=== PATIENT | male | born 1950 | race Caucasian/White ===

== ENCOUNTER 2019-10-09 10:42 | Outpatient (CLI) | payer MEDICARE, SELFPAY ==
[2019-10-09 11:00] LABS: Basophils Absolute Auto 0.1 K/mm3 (0.0-0.1); Basophils Percent Auto 1.1 % (0.2-1.2); Eosinophils Absolute Auto 0.3 K/mm3 (0-0.3); Eosinophils Percent Auto 4.5 % (0-4.4); Hematocrit 46.5 % (42.0-52.0); Hemoglobin 16.1 g/dL (14.0-18.0); Immature Granulocyte Absolute 0.12 K/mm3 (0.00-0.031); Immature Granulocyte Percent A 1.9 % (0-0.5); Lymphocytes Absolute Auto 2.13 K/mm3 (0.9-3.2); Lymphocytes Percent Auto 34.5 % (18.3-44.2); Mean Corpuscular HGB Conc 34.6 g/dl (32-36); Mean Corpuscular Hemoglobin 33.3 pg (26-34); Mean Corpuscular Volume 96.1 fl (80-100); Mean Platelet Volume 8.9 fl (7.4-10.4); Monocytes Absolute Auto 0.9 K/mm3 (0.1-0.6); Monocytes Percent Auto 13.8 % (2.6-8.5); Neutrophils Absolute Auto 2.7 K/mm3 (1.3-6.7); Neutrophils Percent Auto 44.2 % (45.5-73.1); Platelet Count Result 245 k/mm3 (150-375); Red Blood Count 4.84 M/mm3 (4.6-6.20); Red Cell Distribution Width 13.2 % (11.5-14.5); White Blood Count 6.2 K/mm3 (4.5-10.0)
[2019-10-09 11:12] LABS: Hemoglobin A1C 6.4 % (<5.7)
[2019-10-09 11:14] LABS: Alanine Aminotransferase 25 U/L (4-50); Albumin Level 4.6 g/dL (3.5-5.1); Alkaline Phosphatase 99 U/L (38-126); Aspartate Amino Transferase 39 U/L (17-59); Bilirubin,Total 0.8 mg/dL (0.2-1.3); Blood Urea Nitrogen 13 mg/dL (9-20); Calcium 9.6 mg/dL (8.4-10.2); Carbon Dioxide 27 mmol/L (22-30); Chloride 101 mmol/L (98-107); Estimated Glomerular Filt Rate > 60; Glucose 159 mg/dL (75-110); Potassium 5.1 mmol/L (3.4-5.0); Sodium 137 mmol/L (137-145)
[2019-10-09 11:41] LABS: Creatinine Urine 72.7 mg/dL
[2019-10-09 11:44] LABS: Prostate Specific Antigen 0.5 ng/mL (< OR = 4.0)
[2019-10-09 11:49] LABS: MALB Creatinine Ratio < 8.3 mg/g (0-30); Microalbumin Urine Random < 6.0 mg/L (0-16.7)
== END 2019-10-09 10:43 | disposition home or self-care (01) ==
PROVIDERS: PCP Internal Medicine; Visit Provider Internal Medicine
DX: E11.9 Type 2 diabetes mellitus without complications (principal); E03.9 Hypothyroidism, unspecified; Z12.5 Encounter for screening for malignant neoplasm of prostate
CPT/HCPCS: 36415; 80053; 82043; 83036; 84153; 84443; 85025; G0103

== ENCOUNTER 2020-05-05 09:37 | Outpatient (CLI) | payer MEDICARE, SELFPAY ==
[2020-05-05 10:19] LABS: Alanine Aminotransferase 28 U/L (4-50); Albumin Level 4.5 g/dL (3.5-5.1); Alkaline Phosphatase 65 U/L (38-126); Anion Gap 5 mmol/L (8-16); Aspartate Amino Transferase 43 U/L (17-59); Bilirubin,Total 0.8 mg/dL (0.2-1.3); Blood Urea Nitrogen 14 mg/dL (9-20); Calcium 9.5 mg/dL (8.4-10.2); Carbon Dioxide 31 mmol/L (22-30); Chloride 103 mmol/L (98-107); Cholesterol 183 mg/dL (0-200); Estimated Glomerular Filt Rate > 60; Glucose 147 mg/dL (75-110); HDL Direct 66 mg/dL; Potassium 4.7 mmol/L (3.4-5.0); Sodium 139 mmol/L (137-145); Triglycerides 210 mg/dL (<150)
[2020-05-05 10:24] LABS: Hemoglobin A1C 6.3 % (<5.7)
[2020-05-05 10:30] LABS: LDL Cholesterol Direct 85 mg/dL
[2020-05-05 10:38] LABS: Creatinine Urine 94.2 mg/dL
[2020-05-05 10:42] LABS: MALB Creatinine Ratio 10.6 mg/g (0-30)
== END 2020-05-05 09:38 | disposition home or self-care (01) ==
PROVIDERS: PCP Internal Medicine; Visit Provider Internal Medicine
DX: E11.9 Type 2 diabetes mellitus without complications (principal); E78.5 Hyperlipidemia, unspecified
CPT/HCPCS: 36415; 80053; 80061; 82043; 83036

== ENCOUNTER 2020-07-01 13:19 | Outpatient (CLI) | payer MEDICARE, SELFPAY | END 2020-07-01 13:20 | disposition home or self-care (01) | LOC: ANHCOVIDVC 13:19 | PROVIDERS: PCP Internal Medicine | DX: Z23 Encounter for immunization (principal) | CPT/HCPCS: 0001A; 91300 ==

== ENCOUNTER 2020-07-22 13:10 | Outpatient (CLI) | payer MEDICARE, SELFPAY | END 2020-07-22 13:11 | disposition home or self-care (01) | LOC: ANHCOVIDVC 13:10 | PROVIDERS: PCP Internal Medicine | DX: Z23 Encounter for immunization (principal) | CPT/HCPCS: 0002A; 91300 ==

== ENCOUNTER 2020-11-04 09:50 | Outpatient (CLI) | payer MEDICARE, SELFPAY ==
[2020-11-04 11:20] LABS: Basophils Absolute Auto 0.1 K/mm3 (0.0-0.1); Basophils Percent Auto 0.9 % (0.2-1.2); Eosinophils Absolute Auto 0.1 K/mm3 (0-0.3); Eosinophils Percent Auto 1.8 % (0-4.4); Hematocrit 44.6 % (42.0-52.0); Hemoglobin 14.8 g/dL (14.0-18.0); Immature Granulocyte Absolute 0.07 K/mm3 (0.00-0.031); Immature Granulocyte Percent A 1.3 % (0-0.5); Lymphocytes Percent Auto 27.3 % (18.3-44.2); Mean Corpuscular HGB Conc 33.2 g/dl (32-36); Mean Corpuscular Hemoglobin 32.5 pg (26-34); Mean Platelet Volume 9.4 fl (7.4-10.4); Monocytes Absolute Auto 0.7 K/mm3 (0.1-0.6); Monocytes Percent Auto 11.8 % (2.6-8.5); Neutrophils Absolute Auto 3.1 K/mm3 (1.3-6.7); Neutrophils Percent Auto 56.9 % (45.5-73.1); Platelet Count Result 233 k/mm3 (150-375); Red Blood Count 4.55 M/mm3 (4.6-6.20); White Blood Count 5.5 K/mm3 (4.5-10.0)
[2020-11-04 11:23] LABS: Alanine Aminotransferase 52 U/L (4-50); Albumin Level 4.5 g/dL (3.5-5.1); Alkaline Phosphatase 76 U/L (38-126); Anion Gap 10 mmol/L (8-16); Aspartate Amino Transferase 80 U/L (17-59); Bilirubin,Total 0.9 mg/dL (0.2-1.3); Blood Urea Nitrogen 11 mg/dL (9-20); Calcium 9.8 mg/dL (8.4-10.2); Carbon Dioxide 25 mmol/L (22-30); Chloride 100 mmol/L (98-107); Cholesterol 115 mg/dL (0-200); Estimated Glomerular Filt Rate > 60; Glucose 91 mg/dL (65-110); HDL Direct 60 mg/dL; Potassium 5.1 mmol/L (3.4-5.0); Sodium 135 mmol/L (137-145); Triglycerides 163 mg/dL (<150)
[2020-11-04 11:25] LABS: Microalbumin Urine Random 35.2 mg/L (0-16.7)
[2020-11-04 11:27] LABS: Creatinine Urine 102.9 mg/dL; MALB Creatinine Ratio 34.2 mg/g (0-30)
[2020-11-04 11:35] LABS: Vitamin D 25 Hydroxy 35.4 ng/mL
[2020-11-04 13:00] LABS: LDL Cholesterol Direct < 30 mg/dL
[2020-11-04 15:03] LABS: Prostate Specific Antigen 0.5 ng/mL (< OR = 4.0)
[2020-11-04 15:51] LABS: Hemoglobin A1C 6.4 % (<5.7)
== END 2020-11-04 09:51 | disposition home or self-care (01) ==
LOC: ANHLAB 09:57
PROVIDERS: PCP Internal Medicine; Visit Provider Internal Medicine
DX: E11.9 Type 2 diabetes mellitus without complications (principal); E03.9 Hypothyroidism, unspecified; E55.9 Vitamin D deficiency, unspecified; F33.41 Major depressive disorder, recurrent, in partial remission; E78.2 Mixed hyperlipidemia; Z12.5 Encounter for screening for malignant neoplasm of prostate
CPT/HCPCS: 36415; 80053; 80061; 82043; 82306; 83036; 84153; 84443; 85025; G0103

== ENCOUNTER 2021-07-16 08:09 | Outpatient (CLI) | payer MEDICARE, OTHER, SELFPAY ==
[2021-07-16 08:47] LABS: Basophils Absolute Auto 0.1 K/mm3 (0.0-0.1); Basophils Percent Auto 1.1 % (0.2-1.2); Eosinophils Absolute Auto 0.2 K/mm3 (0-0.3); Hematocrit 44.5 % (42.0-52.0); Hemoglobin 15.3 g/dL (14.0-18.0); Immature Granulocyte Absolute 0.07 K/mm3 (0.00-0.031); Immature Granulocyte Percent A 1.3 % (0-0.5); Lymphocytes Absolute Auto 2.34 K/mm3 (0.9-3.2); Lymphocytes Percent Auto 42.7 % (18.3-44.2); Mean Corpuscular HGB Conc 34.4 g/dl (32-36); Mean Corpuscular Hemoglobin 32.7 pg (26-34); Mean Corpuscular Volume 95.1 fl (80-100); Mean Platelet Volume 8.5 fl (7.4-10.4); Monocytes Absolute Auto 0.8 K/mm3 (0.1-0.6); Neutrophils Percent Auto 35.9 % (45.5-73.1); Platelet Count Result 214 k/mm3 (150-375); Red Blood Count 4.68 M/mm3 (4.6-6.20); Red Cell Distribution Width 14.1 % (11.5-14.5); White Blood Count 5.5 K/mm3 (4.5-10.0)
[2021-07-16 09:00] LABS: Alanine Aminotransferase 25 U/L (4-50); Albumin Level 4.1 g/dL (3.5-5.1); Alkaline Phosphatase 160 U/L (38-126); Anion Gap 8 mmol/L (8-16); Aspartate Amino Transferase 33 U/L (17-59); Bilirubin,Total 0.7 mg/dL (0.2-1.3); Blood Urea Nitrogen 6 mg/dL (9-20); Calcium 8.9 mg/dL (8.4-10.2); Carbon Dioxide 28 mmol/L (22-30); Chloride 102 mmol/L (98-107); Cholesterol 157 mg/dL (0-200); Estimated Glomerular Filt Rate > 60; Glucose 133 mg/dL (65-110); HDL Direct 68 mg/dL; Potassium 3.9 mmol/L (3.4-5.0); Sodium 138 mmol/L (137-145); Triglycerides 229 mg/dL (<150)
[2021-07-16 09:11] LABS: LDL Cholesterol Direct 44 mg/dL
[2021-07-16 09:51] LABS: Hemoglobin A1C 5.9 % (<5.7)
[2021-07-16 13:41] LABS: MALB Creatinine Ratio < 9.7 mg/g (0-30); Microalbumin Urine Random < 6.0 mg/L (0-16.7)
== END 2021-07-16 08:10 | disposition home or self-care (01) ==
LOC: ANHLAB 08:15
PROVIDERS: PCP Internal Medicine; Visit Provider Internal Medicine
DX: E03.9 Hypothyroidism, unspecified (principal); E78.5 Hyperlipidemia, unspecified; E11.9 Type 2 diabetes mellitus without complications; F33.41 Major depressive disorder, recurrent, in partial remission; E78.2 Mixed hyperlipidemia
CPT/HCPCS: 36415; 80053; 80061; 82043; 83036; 85025

== ENCOUNTER 2021-10-01 17:10 | Emergency (ER) | payer MEDICARE, OTHER, SELFPAY ==
[2021-10-01 17:18] VITALS: BP 156/80; PULSE 88; RESP 20; TEMP 36.9; O2SAT 100
--- NOTE | 2021-10-01 17:28 | ED.SKABFB ---
HPI - Skin/Abscess/Foreign Bdy General Chief complaint: Skin/Abscess/Foreign Body Stated complaint: right leg insect bite Time Seen by Provider: 10/01/21 17:28 Source: patient Mode of arrival: ambulatory Limitations: no limitations History of Present Illness HPI narrative: 70-year-old male presents with complaint of redness, swelling, warmth to right lower leg for approximately 2 to 3 days. States yesterday right leg was draining a oneal pussy drainage . States he filled up several paper towels with drainage. Denies fever chills. States that he first noticed a red bump last week to look like a mosquito bite and then changed into a blister. History of diabetes. Is concerned he may need an antibiotic. All systems reviewed and negative except as noted above. Related Data Home Medications Medication Instructions Recorded Confirmed triamcinolone acetonide 0.1 % 1 applic topical BID 03/02/19 10/01/21 topical ointment Allergies Allergy/AdvReac Type Severity Reaction Status Date / Time morphine Allergy Unknown Nausea Verified 10/01/21 17:25 Review of Systems Review of Systems: CONSTITUTIONAL: Denies fever, chills, or sweats. EYES: Denies visual changes, redness, or discharge. ENT: Denies rhinorrhea, congestion, sore throat, or otalgia. CARDIOVASCULAR: Denies chest pain, palpitations, or edema. RESPIRATORY: Denies cough or dyspnea. GASTROINTESTINAL: Denies abdominal pain, nausea, vomiting, or diarrhea. GENITOURINARY: Denies dysuria or hematuria. SKIN: Denies rash or itching. Reports redness, swelling, warmth and drainage to right lower leg. MUSCULOSKELETAL: Denies back pain, joint pain, or myalgia. NEUROLOGIC: Denies headache, numbness, or weakness. PSYCHIATRIC: Denies anxiety or depression. All other systems reviewed are negative, except as documented in HPI. [facility] Past Medical History Medical History (Updated 10/01/21 @ 18:05 by Dariela Brooks NP) Broken ribs Family History Family History (Updated 11/15/13 @ 07:13 by DOCTOR UNKNOWN) Mother Family history of Alzheimer's disease Other Diabetes mellitus Hypertension Social History Social History (Updated 07/15/21 @ 11:26 by Yan Conde MA) Second hand tobacco smoke exposure: No Smoking end date: 03/21/77 Alcohol intake: current Drinks per week: 30 Substance use: never Substance use type: does not use Exam Narrative: GENERAL: This is a well-nourished, well-developed patient, in no apparent distress. HEAD: normocephalic, atraumatic. EYES: PERRL. Sclera clear/white. Vision is grossly intact. EARS: External ears normal NOSE: External nose normal NECK: Neck supple, non-tender without lymphadenopathy, masses or thyromegaly. CARDIOVASCULAR: Regular rate and rhythm without murmurs, gallops, or rubs. RESPIRATORY: Clear to auscultation. Breath sounds equal bilaterally. No wheezes, rales, or rhonchi. SKIN: warm, Dry, intact with no suspicious lesions or rash, good texture and turgor. NEURO: awake, alert, and oriented to person, place and time. There were no obvious focal neurologic abnormalities. EXTREMITIES: No joint tenderness, effusion, or edema noted. Abscess to right mid avila approximately 5 cm diameter with fluctuance. Surrounding erythema to right lower leg approximately 16 x 10 cm. No drainage noted. Course Course Emergency Course: Packing placed to abscess. Instructed to remove within the next 48 hours. Patient given packing to repack once himself and then instructed to follow-up with his PCP next week. Patient is aware of diagnosis, understands and agrees to treatment plan. Anticipatory guidance given. Patient agrees to follow-up as directed and is aware of reasons to seek care at the emergency department. Portions of this record may have been created with voice recognition software Level of Care: Express Care Visit Vital Signs Vital signs: Vital Signs Temperature 36.9 C 10/01/21 17:18 Pulse Rate
== END 2021-10-01 18:13 | disposition home or self-care (01) ==
PROVIDERS: Emergency Provider Nurse Practitioner Family; PCP Internal Medicine
DX: L03.115 Cellulitis of right lower limb (principal); L02.415 Cutaneous abscess of right lower limb; Z87.891 Personal history of nicotine dependence
CPT/HCPCS: 10061; 87070; 87147; 87186; 87205; 99213; G0463

== ENCOUNTER 2021-10-14 10:23 | Emergency (ER) | payer MEDICARE, OTHER, SELFPAY ==
--- NOTE | ~2021-10-14 | XR_ITS ---
EXAMINATION: XR humerus RT INDICATION: Right shoulder pain TECHNIQUE: Two views of the right humerus are obtained on three radiographs COMPARISON: None available FINDINGS: There is anterior and inferior dislocation of the humeral head with respect to the glenoid. No definite fracture is identified. The soft tissues are unremarkable. IMPRESSION: 1. Anterior and inferior dislocation of the humeral head with respect to the glenoid. Reviewed, dictated and finalized at location B. IMPRESSION: 1. Anterior and inferior dislocation of the humeral head with respect to the gl enoid.
--- NOTE | ~2021-10-14 | XR_ITS ---
EXAMINATION: XR shoulder RT min 2V INDICATION: Right shoulder pain TECHNIQUE: Three views of the right shoulder are submitted. COMPARISON: None FINDINGS: There is anterior and inferior dislocation of the humeral head with respect to the glenoid. 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 No definite fract ure is identified. Soft tissues are unremarkable. IMPRESSION: 1. Anterior and inferior dislocation of the humeral head with respect to the glenoid. Reviewed, dictated and finalized at location B. IMPRESSION: 1. Anterior and inferior dislocation of the humeral head with respect to the gl enoid.
[2021-10-14 10:38] VITALS: BP 196/127; PULSE 84; RESP 20; TEMP 36.3; O2SAT 100
--- NOTE | 2021-10-14 10:38 | ED.UPPEXIN ---
HPI - Extremity Injury (Upper) General Chief Complaint: Extremity Injury, Upper Stated Complaint: R SHOULDER INJURY Time Seen by Provider: 10/14/21 10:38 Source: patient Mode of arrival: ambulatory Limitations: no limitations History of Present Illness HPI narrative: 70 y/o male presented for right arm pain from elbow to shoulder, after injury yesterday. States he fell landing on the right arm, struck the right side of his head near the eye as well. Pt drove himself to the [facility], accompanied by his . Unable to put on his shirt. Has not taken anything for pain. Related Data Home Medications Medication Instructions Recorded Confirmed triamcinolone acetonide 0.1 % 1 applic topical BID 03/02/19 10/12/21 topical ointment Allergies Allergy/AdvReac Type Severity Reaction Status Date / Time morphine Allergy Unknown Nausea Verified 10/12/21 10:31 Review of Systems Review of Systems: CONSTITUTIONAL: Denies body aches, fever, chills EYES: Denies visual changes ENT: Denies rhinorrhea, congestion CARDIOVASCULAR: Denies chest pain, palpitations, or edema. RESPIRATORY: Denies cough or dyspnea. GASTROINTESTINAL: Denies abdominal pain, nausea, vomiting SKIN: Denies rash, itching, or wounds. MUSCULOSKELETAL: Reports right shoulder pain NEUROLOGIC: Denies headache All systems reviewed & are unremarkable except as noted in HPI and below PMFSH Past Medical History Medical History Broken ribs Family History Family History Mother Family history of Alzheimer's disease Other Diabetes mellitus Hypertension Social History Social History Smoking status: Former smoker Second hand tobacco smoke exposure: No Smoking end date: 03/21/77 Alcohol intake: current Drinks per week: 30 Substance use: never Substance use type: does not use Comments At time of signature, I have reviewed and agree with nursing past medical, surgical, social and family history unless otherwise noted. Please see nursing chart for further information. There is no relevant family history pertinent to the presenting complaint Exam Narrative: GENERAL: Appears in pain, in no acute distress. HEAD: Normocephalic, signs of trauma to right eyebrow/upper eye lateral aspect bruising and abrasion EYES: PERRLA, conjunctivae clear NECK: Supple. no cervical vpt. CHEST: Speaks in full sentences. No respiratory distress. HEART: Regular rate and rhythm. Normal and equal peripheral pulses. EXTREMITIES: Right shoulder with apparent deformity. Right Arm unable to move at the shoulder, elbow ROM limited due to pain. Guarding the use of right arm. No swelling/bruising. No open wounds; pulse palpable and equal bilaterally, skin warm, dry, pink. Normal sensation to fingers. Capillary refill less than 3 seconds. SKIN: Warm, moist NEURO: Alert and oriented x3. Course Course Emergency Course: Patient is aware of diagnosis, understands and agrees to treatment plan. Anticipatory guidance given. Portions of this record may have been created with voice recognition software Level of Care: Express Care Visit Vital Signs Vital signs: Reviewed Transfer Transfered to: [facility] Transportation: Other (private vehicle) Transfer rationale: Pt is agreeable to transfer to ER for treatment of the shoulder dislocation. Requests transfer to [facility] via private vehicle. Risks of transportation reviewed with pt including injury, worsening of condition and . v/u. Pt is advised to be driving pt however he adamantly refused, he is A&Ox3, states she can drive; Report called to [facility], spoke with Travis Li NP, accepting physician. Pt is in stable condition at time of transfer. Advised to remain NPO and go directly to the hospital. MDM - Extremity Injury (Upper)
== END 2021-10-14 11:26 | disposition short-term general hospital (02) ==
PROVIDERS: Emergency Provider Nurse Practitioner Family; PCP Internal Medicine
DX: S43.014A Anterior dislocation of right humerus, initial encounter (principal); S43.034A Inferior dislocation of right humerus, initial encounter; W19.XXXA Unspecified fall, initial encounter; Z91.81 History of falling; Z87.891 Personal history of nicotine dependence
CPT/HCPCS: 73030; 73060; 99213; G0463

== ENCOUNTER 2021-10-14 11:38 | Emergency (ER) | payer MEDICARE, OTHER, SELFPAY ==
[2021-10-14] VITALS (15 sets, daily range): BP systolic 147–197; BP diastolic 75–103; PULSE 78–91; RESP 14–20; TEMP 36.7–36.9; O2SAT 95–100
--- NOTE | ~2021-10-14 | XR_ITS ---
EXAMINATION: XR shoulder RT min 2V INDICATION: Post reduction TECHNIQUE: Two views of the right shoulder are submitted. COMPARISON: 1035 hours FINDINGS: The previously described humeral head dislocation has been reduced. Alignment is anatomic. 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 No definite fractu re is identified. IMPRESSION: 1. Reduced humeral head dislocation. Reviewed, dictated and finalized at location B.
--- NOTE | ~2021-10-14 | CT_ITS ---
EXAMINATION: CT brain wo con DATE: 10/14/2021 13:14 INDICATION: Head injury status post fall. TECHNIQUE: Computed tomography (CT) of the head was performed without intravenous contrast. The dose- length product was 605.33 mGy-cm. Automated exposure control and iterative reconstruction technique w ere employed. COMPARISON: CT dated 01/01/2010 FINDINGS: No acute intracranial hemorrhage, infarction, mass or mass effect. No ventriculomegaly or m idline shift. There is intracranial atherosclerosis. There is mild mucosal thickening of the left max illary sinus. Mastoids are pneumatized. No depressed skull fractures. There are scattered mild perive ntricular and subcortical white matter changes, most likely related to small vessel ischemic disease (microangiopathy). Midline sagittal images are unremarkable. IMPRESSION: 1. No acute intracranial abnormality. 2: Chronic age-related findings. Reviewed, dictated and finalized at location A.
--- NOTE | ~2021-10-14 | CT_ITS ---
EXAMINATION: CT cervical spine wo con DATE: 10/14/2021 13:14 INDICATION: Status post fall. Neck pain. TECHNIQUE: Computed tomography (CT) of the cervical spine was performed without intravenous contrast. The dose-length product was 435 mGy-cm. Automated exposure control and iterative reconstruction tech [employer] were employed. COMPARISON: CT dated FINDINGS: There are chronic wedge-shaped appearance to C3-C5 without significant change. New small sc lerotic lesion and C6. Odontoid process within normal limits. There is degenerative anterolisthesis a t C2-3. There is disc narrowing at C4-5 through C6-7. No evidence for perched facet. Craniovertebral junction is unremarkable. Lung apices are normal. No evidence for perched facet. There is reversal of cervical lordosis. No significant paraspinal soft tissue abnormality. IMPRESSION: 1. No acute abnormality of the cervical spine. 2: New sclerotic lesion of C6. Consider metastatic disease. Correlate for clinical history of maligna ncy (i.e. prostate cancer). Consider correlation with nuclear bone scan or MRI. 3: Moderate-severe cervical spondylosis. Reviewed, dictated and finalized at location A. IMPRESSION: 1. No acute abnormality of the cervical spine. 2: New sclerotic lesion of C6. Consider metastatic disease. Correlate for clini rodolfo history of malignancy (i.e. prostate cancer). Consider correlation with nuc lear bone scan or MRI. 3: Moderate-severe cervical spondylosis.
[2021-10-14] MEDS: fentaNYL CITRATE INJ (*CRX) 100 MCG/2 ML VIAL IV PUSH (11:55)
[2021-10-14] MEDS: SODIUM CHLORIDE 0.9% IV 1,000 ML 150 ML IV CONT (11:55)
--- NOTE | 2021-10-14 12:32 | ED.UPPEXIN ---
HPI - Extremity Injury (Upper) General Chief Complaint: Extremity Injury, Upper Stated Complaint: R shoulder dislocation? Time Seen by Provider: 10/14/21 11:41 History of Present Illness HPI narrative: 70-year-old male presents emergency room for evaluation of right shoulder pain. States yesterday he was out camping and he tripped over a tree root, landing directly on his right shoulder. Patient states he immediately noticed bony abnormality. Was seen at urgent care earlier today plain films were obtained of the shoulder that showed a right anterior and inferior dislocation of the humeral head with no obvious fracture. Patient has a history of multiple AC dislocations surgical repair in the past. Related Data Home Medications Medication Instructions Recorded Confirmed triamcinolone acetonide 0.1 % 1 applic topical BID 03/02/19 10/12/21 topical ointment Allergies Allergy/AdvReac Type Severity Reaction Status Date / Time morphine Allergy Unknown Nausea Verified 10/12/21 10:31 Review of Systems Review of Systems: CONSTITUTIONAL: Denies fever, chills, or sweats. EYES: Denies visual changes, redness, or discharge. ENT: Denies rhinorrhea, congestion, sore throat, or otalgia. CARDIOVASCULAR: Denies chest pain, palpitations, or edema. RESPIRATORY: Denies cough or dyspnea. GASTROINTESTINAL: Denies abdominal pain, nausea, vomiting, or diarrhea. GENITOURINARY: Denies dysuria or hematuria. SKIN: Denies rash or itching. MUSCULOSKELETAL: Reports right shoulder pain NEUROLOGIC: Denies headache, numbness, dizziness, or weakness. PSYCHIATRIC: Denies anxiety or depression. PMFSH Past Medical History Medical History Broken ribs Family History Family History Mother Family history of Alzheimer's disease Other Diabetes mellitus Hypertension Social History Social History Smoking status: Former smoker Second hand tobacco smoke exposure: No Smoking end date: 03/21/77 Alcohol intake: current Drinks per week: 30 Substance use: never Substance use type: does not use Exam Narrative: GENERAL: Well-appearing, well-nourished, no physical limitations, and in no acute distress. HEAD: Normocephalic, atraumatic. EYES: Conjunctivae normal, PERRLA and EOMI. ecchymosis noted to the upper eyelid CHEST: Clear to auscultation. No respiratory distress. No wheezes rales or rhonchi. No tenderness. HEART: Regular rate and rhythm. No murmur heard. Normal peripheral pulses. BACK: No CVA tenderness; No cervical/thoracic/lumbar tenderness, step-offs, bony abnormality; FROM EXTREMITIES: Right shoulder: No obvious bony abnormality noted to the glenohumeral joint. Limited range of motion due to dislocation. Neurovascular is intact distally SKIN: Warm, dry, no rash. No noted wounds NEURO: No focal deficits. Alert and oriented x3. MAEW. CN's II-XI intact bilaterally, normal gait PSYCH: Cooperative. Normal mood and affect. Course Vital Signs Vital signs: Vital Signs Temperature 36.7 C 10/14/21 11:42 Pulse Rate 86 10/14/21 11:42 Respiratory Rate 20 10/14/21 11:42 Blood Pressure 180/97 H 10/14/21 11:42 Pulse Oximetry 100 10/14/21 11:42 Oxygen Delivery Room Air 10/14/21 11:42 Temperature 36.7 C 10/14/21 12:10 Pulse Rate 88 10/14/21 13:30 Respiratory Rate 18 10/14/21 13:30 Blood Pressure 172/78 H 10/14/21 13:30 Pulse Oximetry 99 10/14/21 13:30 Oxygen Delivery Room Air 10/14/21 13:30 Oxygen Flow Rate 2 10/14/21 12:03 Procedures Orthopedic Joint Reduction Joint #1: Orthopedic Joint Reduction Date: 10/14/21 Orthopedic Joint Reduction Time: 12:30 Time Out Performed: Yes Side: right Joint Reduction Location: shoulder Analgesia: procedural sedation Pre-Procedure Neuro Vascular
== END 2021-10-14 13:48 | disposition home or self-care (01) ==
PROVIDERS: Emergency Provider Nurse Practitioner Family; PCP Internal Medicine
DX: S43.004A Unspecified dislocation of right shoulder joint, initial encounter (principal); S09.90XA Unspecified injury of head, initial encounter; Z87.891 Personal history of nicotine dependence; M47.812 Spondylosis without myelopathy or radiculopathy, cervical region; W01.0XXA Fall on same level from slipping, tripping and stumbling without subsequent striking against object, initial encounter
CPT/HCPCS: 23650; 70450; 72125; 73030; 73060; 96374; 99285; A4565; J2704; J3010; J7030

== ENCOUNTER 2021-11-06 07:14 | Outpatient (CLI) | payer MEDICARE, OTHER, SELFPAY ==
--- NOTE | ~2021-11-06 | MR_ITS ---
EXAMINATION: MR cervical spine wo/w con DATE: 11/06/2021 10:49 INDICATION: C6 sclerotic lesion. Abnormal findings on diagnostic imaging. TECHNIQUE: Magnetic resonance imaging (MRI) of the cervical spine was performed without intravenous c ontrast. Sequences included sagittal T2-weighted FSE, sagittal T2-weighted FS FSE, sagittal T1-weight ed FSE, axial MERGE, and axial T2-weighted FSE. COMPARISON: CT cervical spine 10/14/2021, 01/01/2010 FINDINGS: There is 2 mm retrolisthesis of C5 on C6. Vertebral body heights are normal. There is a scl erotic lesion in C6 vertebral body. There is moderately decreased disc height at C5-C6 and severely d ecreased disc height at C6-C7. The spinal cord signal intensity is normal. The following disc levels are specifically discussed: C2-C3: The disc does not extend beyond the endplate margin. There is mild left uncovertebral joint os teoarthritis. There is severe bilateral facet joint osteoarthritis. There is mild bilateral neural fo raminal stenosis. There is no central canal stenosis. C3-C4: The disc does not extend beyond the endplate margin. There is moderate bilateral uncovertebral joint osteoarthritis. There is mild right and moderate left facet joint osteoarthritis. There is mil d bilateral neural foraminal stenosis. There is no central canal stenosis. C4-C5: The disc is bulging. There is severe bilateral uncovertebral joint osteoarthritis. There is mi ld right and moderate left facet joint osteoarthritis. There is moderate bilateral neural foraminal s tenosis. There is mild central canal stenosis with ventral indentation of the spinal cord. C5-C6: The disc is bulging. There is severe bilateral uncovertebral joint osteoarthritis. There is mo derate bilateral facet joint osteoarthritis. There is moderate bilateral neural foraminal stenosis. T here is moderate central canal stenosis with ventral and dorsal indentation of the spinal cord. C6-C7: The disc is bulging. There is severe bilateral uncovertebral joint osteoarthritis. There is se reynold bilateral facet joint osteoarthritis. There is moderate bilateral neural foraminal stenosis. The re is moderate central canal stenosis with ventral and dorsal indentation of the spinal cord. C7-T1: The disc does not extend beyond the endplate margin. There is no uncovertebral joint osteoarth ritis. There is severe bilateral facet joint osteoarthritis. There is mild bilateral neural foraminal stenosis. There is no central canal stenosis. IMPRESSION: 1. C6 sclerotic lesion with attenuation of [address] from 10/14/2021, consistent with a benign bone island. 2. Severe cervical spondylosis. Reviewed, dictated and finalized at location A. IMPRESSION: 1. C6 sclerotic lesion with attenuation of [address] from 10/14/2021, co nsistent with a benign bone island. 2. Severe cervical spondylosis.
== END 2021-11-06 07:15 | disposition home or self-care (01) ==
PROVIDERS: PCP Internal Medicine; Visit Provider Internal Medicine
DX: R93.7 Abnormal findings on diagnostic imaging of other parts of musculoskeletal system (principal); M47.892 Other spondylosis, cervical region
CPT/HCPCS: 72156; A9577

== ENCOUNTER 2022-01-22 09:22 | Outpatient (CLI) | payer MEDICARE, OTHER, SELFPAY ==
[2022-01-22 10:36] LABS: Alanine Aminotransferase 31 U/L (6-50); Albumin Level 4.6 g/dL (3.5-5.1); Alkaline Phosphatase 130 U/L (38-126); Anion Gap 13 mmol/L (8-16); Aspartate Amino Transferase 46 U/L (17-59); Bilirubin,Total 0.8 mg/dL (0.2-1.3); Blood Urea Nitrogen 9 mg/dL (9-20); Calcium 9.1 mg/dL (8.4-10.2); Carbon Dioxide 26 mmol/L (22-30); Chloride 100 mmol/L (98-107); Cholesterol 197 mg/dL (0-200); Estimated Glomerular Filt Rate > 60; Glucose 164 mg/dL (65-110); HDL Direct 69 mg/dL; Potassium 4.4 mmol/L (3.4-5.0); Sodium 139 mmol/L (137-145); Triglycerides 171 mg/dL (<150)
[2022-01-22 10:47] LABS: LDL Cholesterol Direct 90 mg/dL
[2022-01-22 11:05] LABS: Prostate Specific Antigen 0.6 ng/mL (< OR = 4.0)
[2022-01-22 12:08] LABS: Hemoglobin A1C 6.8 % (<5.7)
== END 2022-01-22 09:23 | disposition home or self-care (01) ==
LOC: ANHLAB 09:25
PROVIDERS: PCP Internal Medicine; Visit Provider Internal Medicine
DX: E11.9 Type 2 diabetes mellitus without complications (principal); E78.5 Hyperlipidemia, unspecified; E03.9 Hypothyroidism, unspecified; Z12.5 Encounter for screening for malignant neoplasm of prostate
CPT/HCPCS: 36415; 80053; 80061; 83036; 84153; 84443; G0103

== ENCOUNTER 2022-07-23 08:57 | Outpatient (CLI) | payer MEDICARE, OTHER, SELFPAY ==
[2022-07-23 10:02] LABS: Alanine Aminotransferase 45 U/L (6-50); Albumin Level 4.3 g/dL (3.5-5.1); Alkaline Phosphatase 145 U/L (38-126); Anion Gap 7 mmol/L (8-16); Aspartate Amino Transferase 53 U/L (17-59); Bilirubin,Total 0.8 mg/dL (0.2-1.3); Blood Urea Nitrogen 10 mg/dL (9-20); Calcium 9.2 mg/dL (8.4-10.2); Carbon Dioxide 31 mmol/L (22-30); Chloride 100 mmol/L (98-107); Cholesterol 153 mg/dL (0-200); Estimated Glomerular Filt Rate > 60; Glucose 140 mg/dL (65-110); HDL Direct 73 mg/dL; Potassium 4.4 mmol/L (3.4-5.0); Sodium 138 mmol/L (137-145); Triglycerides 129 mg/dL (<150)
[2022-07-23 10:12] LABS: LDL Cholesterol Direct 57 mg/dL
[2022-07-23 10:15] LABS: Vitamin D 25 Hydroxy 14.1 ng/mL
[2022-07-23 10:20] LABS: Creatinine Urine 62.3 mg/dL
[2022-07-23 10:23] LABS: MALB Creatinine Ratio 11.4 mg/g (0-30); Microalbumin Urine Random 7.1 mg/L (0-16.7)
[2022-07-23 18:42] LABS: Hemoglobin A1C 6.1 % (<5.7)
== END 2022-07-23 08:58 | disposition home or self-care (01) ==
PROVIDERS: PCP Internal Medicine; Visit Provider Internal Medicine
DX: E78.5 Hyperlipidemia, unspecified (principal); E11.9 Type 2 diabetes mellitus without complications; E03.9 Hypothyroidism, unspecified; E55.9 Vitamin D deficiency, unspecified
CPT/HCPCS: 36415; 80053; 80061; 82043; 82306; 83036; 84443

== ENCOUNTER 2023-01-09 15:22 | Emergency (ER) | payer OTHER, MEDICARE, SELFPAY ==
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
[2023-01-09 15:42] VITALS: BP 193/106; PULSE 82; RESP 16; TEMP 36.4; O2SAT 100
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
[2023-01-09] MEDS: IBUPROFEN 400 MG TABLET 800 MG PO (16:40)
== END 2023-01-09 17:24 | disposition home or self-care (01) ==
PROVIDERS: Emergency Provider Nurse Practitioner; PCP Nurse Practitioner
DX: S46.912A Strain of unspecified muscle, fascia and tendon at shoulder and upper arm level, left arm, initial encounter (principal); S20.212A Contusion of left front wall of thorax, initial encounter; E11.9 Type 2 diabetes mellitus without complications; E78.5 Hyperlipidemia, unspecified; I10 Essential (primary) hypertension; Z87.891 Personal history of nicotine dependence; V89.2XXA Person injured in unspecified motor-vehicle accident, traffic, initial encounter
CPT/HCPCS: 71101; 73030; 99214; A9270; G0463

== ENCOUNTER 2023-02-01 10:01 | Outpatient (CLI) | payer MEDICARE, OTHER, SELFPAY ==
[2023-02-01 10:33] LABS: Alanine Aminotransferase 34 U/L (6-50); Albumin Level 4.4 g/dL (3.5-5.1); Alkaline Phosphatase 109 U/L (38-126); Anion Gap 11 mmol/L (8-16); Aspartate Amino Transferase 43 U/L (17-59); Bilirubin,Total 1.1 mg/dL (0.2-1.3); Blood Urea Nitrogen 14 mg/dL (9-20); Calcium 9.5 mg/dL (8.4-10.2); Carbon Dioxide 24 mmol/L (22-30); Chloride 104 mmol/L (98-107); Cholesterol 168 mg/dL (0-200); Estimated Glomerular Filt Rate > 60; Glucose 144 mg/dL (65-110); HDL Direct 62 mg/dL; Hemoglobin A1C 6.1 % (<5.7); Potassium 4.6 mmol/L (3.4-5.0); Sodium 139 mmol/L (137-145); Triglycerides 316 mg/dL (<150)
[2023-02-01 10:47] LABS: LDL Cholesterol Direct 57 mg/dL
[2023-02-01 11:05] LABS: Prostate Specific Antigen 0.6 ng/mL (< OR = 4.0)
== END 2023-02-01 10:02 | disposition home or self-care (01) ==
LOC: ANHLAB 10:03
PROVIDERS: PCP Nurse Practitioner; Visit Provider Nurse Practitioner
DX: Z12.5 Encounter for screening for malignant neoplasm of prostate (principal); E78.5 Hyperlipidemia, unspecified; E11.9 Type 2 diabetes mellitus without complications; E03.9 Hypothyroidism, unspecified
CPT/HCPCS: 36415; 80053; 80061; 83036; 84153; 84443; G0103

== ENCOUNTER 2023-08-12 07:10 | Outpatient (CLI) | payer MEDICARE, OTHER, SELFPAY ==
[2023-08-12 08:36] LABS: Alanine Aminotransferase 43 U/L (6-50); Albumin Level 4.2 g/dL (3.5-5.1); Alkaline Phosphatase 143 U/L (38-126); Anion Gap 6 mmol/L (4-12); Aspartate Amino Transferase 55 U/L (17-59); Bilirubin,Total 0.8 mg/dL (0.2-1.3); Blood Urea Nitrogen 13 mg/dL (9-20); Calcium 9.2 mg/dL (8.4-10.2); Carbon Dioxide 28 mmol/L (22-30); Chloride 105 mmol/L (98-107); Cholesterol 141 mg/dL (0-200); Estimated Glomerular Filt Rate > 60; Glucose 130 mg/dL (65-110); HDL Direct 64 mg/dL; Potassium 4.4 mmol/L (3.4-5.0); Sodium 139 mmol/L (137-145); Triglycerides 132 mg/dL (<150)
[2023-08-12 08:47] LABS: LDL Cholesterol Direct 63 mg/dL
[2023-08-12 08:50] LABS: Free T4 Free Thyroxine 1.09 ng/mL (0.78-2.19)
[2023-08-12 09:06] LABS: Thyroid Stimulating Hormone 0.213 uIU/mL (0.465-4.680)
[2023-08-12 09:16] LABS: Hemoglobin A1C 5.8 % (<5.7)
== END 2023-08-12 07:11 | disposition home or self-care (01) ==
PROVIDERS: PCP Nurse Practitioner; Visit Provider Nurse Practitioner
DX: E11.9 Type 2 diabetes mellitus without complications (principal); E03.9 Hypothyroidism, unspecified; E78.5 Hyperlipidemia, unspecified
CPT/HCPCS: 36415; 80053; 80061; 83036; 84439; 84443

== ENCOUNTER 2024-02-22 08:57 | Outpatient (CLI) | payer MEDICARE, OTHER, SELFPAY ==
[2024-02-22 10:10] LABS: Alanine Aminotransferase 28 U/L (6-50); Albumin Level 4.4 g/dL (3.5-5.1); Alkaline Phosphatase 108 U/L (38-126); Anion Gap 6 mmol/L (4-12); Aspartate Amino Transferase 34 U/L (17-59); Bilirubin,Total 0.8 mg/dL (0.2-1.3); Blood Urea Nitrogen 12 mg/dL (9-20); Calcium 9.3 mg/dL (8.4-10.2); Carbon Dioxide 31 mmol/L (22-30); Chloride 103 mmol/L (98-107); Cholesterol 132 mg/dL (0-200); Estimated Glomerular Filt Rate > 60; Glucose 141 mg/dL (65-110); HDL Direct 63 mg/dL; Potassium 4.5 mmol/L (3.4-5.0); Sodium 140 mmol/L (137-145); Triglycerides 99 mg/dL (<150)
[2024-02-22 10:21] LABS: LDL Cholesterol Direct 42 mg/dL
[2024-02-22 10:41] LABS: Thyroid Stimulating Hormone < 0.015 uIU/mL (0.465-4.680)
== END 2024-02-22 08:58 | disposition home or self-care (01) ==
PROVIDERS: PCP Nurse Practitioner; Visit Provider Nurse Practitioner
DX: E78.5 Hyperlipidemia, unspecified (principal); E11.9 Type 2 diabetes mellitus without complications; E03.9 Hypothyroidism, unspecified
CPT/HCPCS: 36415; 80053; 80061; 83036; 84443

== ENCOUNTER 2024-06-05 15:38 | Outpatient (CLI) | payer MEDICARE, OTHER, SELFPAY ==
--- NOTE | ~2024-06-05 | MR_ITS ---
MRI of the right shoulder Technique: Axial proton-density fat-sat images, coronal proton density fat-sat and T2 fat-sat images, and sagittal T1-weighted and T2 fat-sat images were acquired. Clinical History: Rotator cuff tear Findings: There is moderate AC joint degenerative change. Small subacromial spur present. There is ex tensive heterotopic ossification the region of the coracoclavicular ligaments. Coracoacromial and cor acohumeral ligaments are probably intact. There is complete, full-thickness tear of the supraspinatus tendon, which is retracted to the medial aspect of the humeral head. Infraspinatus tendon is probably intact. Subscapularis and biceps tendons are poorly evaluated due to motion artifact on axial sequences. The biceps tendon is somewhat displa lucy anteriorly, which could reflect underlying tear of the transverse ligament fibers of the distal s ubscapularis tendon with subluxation/dislocation of the biceps tendon. No definite biceps tendon rupt ure evident. There is advanced subscapularis tendinosis. No definite labral tear seen. Inferior glenohumeral ligament is intact. There is minimal chondromalacia the humeral head. There is a small glenohumeral joint effusion. No definite muscle atrophy. Impression: Complete, full-thickness tear of the supraspinatus tendon, as detailed above. Suboptimal evaluation of subscapularis and biceps tendons due to motion artifact on axial sequences. There is suspected tearing of the distal transverse ligament fibers of the subscapularis tendon with subluxation/dislocation of the biceps tendon. Advanced tendinosis of the subscapularis and intra-chaz cular biceps tendons. Moderate AC joint degenerative change with extensive heterotopic ossification the region of the corac oclavicular ligaments. Reviewed, dictated and finalized at [facility]. Impression: Complete, full-thickness tear of the supraspinatus tendon, as detailed above. Suboptimal evaluation of subscapularis and biceps tendons due to motion artifac t on axial sequences. There is suspected tearing of the distal transverse ligam ent fibers of the subscapularis tendon with subluxation/dislocation of the negra ps tendon. Advanced tendinosis of the subscapularis and intra-articular biceps tendons. Moderate AC joint degenerative change with extensive heterotopic ossification t he region of the coracoclavicular ligaments.
--- OUTSIDE RECORDS SUMMARY | 2024-06-05 17:33 | XMS_ITS | Clinical Summary ---
Author Organization [facility] [employer] Address [address] [place] [address] Care Team Providers Care Diamond Driller Helper Name Role Phone Unavailable Primary Care Provider Unavailabl e Source Comments [facility],non-owned Affiliates and Associated Physician Practices is amultiple site organization consisting of ambulatory clinics and hospital sitesin [place], [place], [place] and [place]. This disclosure is being madepursuant to the Care Everywhere program and may not contain all information available regarding this patient. Last updated 17.[facility] [employer] Allergies No known active allergies Medications * Be aware that medications may not be up to date on this document. Alwaysverify current medications with the patient. Medication Sig Dispensed Refills Start Date End Date Status metFORMIN (GLUCOPHAGE) 1000 MG tablet Take 1,000 mg by mouth 2 times daily with morning and evening meal Active levothyroxine (SYNTHROID) 150 MCG tablet Take 150 mcg by mouth daily before breakfast Active atorvastatin (LIPITOR) 40 MG tablet Take 40 mg by mouth at bedtime Active icosapent ethyl (VASCEPA) 1 g capsule Take 1 g by mouth 2 times daily with morning and evening meal Active candesartan (ATACAND) 32 MG tablet Take 32 mg by mouth once daily Active empagliflozin-stew GLIPtin (GLYXAMBI) 10-5 MG tablet Take 1 tablet by mouth every morning Active Venlafaxine HCl (VENLAFAXINE ER 24HR) 150 MG tablet Take 150 mg by mouth daily with breakfast Active oxyCODONE, immediate release, (ROXICODONE) 5 MG tablet Take 1 (one) tablet by mouth every 6 hours as needed for Pain 28 tablet 05/08/2021 Active acetaminophen (TYLENOL) 325 MG tablet Take 2 (two) tablets by mouth every 6 hours as needed for Fever or Pain Maximum allowable Acetaminophen amount = 4 Grams (4000 mg) / 24 hours. 05/08/2021 Active ibuprofen (MOTRIN) 600 MG tablet Take 1 (one) tablet by mouth every 6 hours as needed for Pain 05/08/2021 Active lidocaine (LIDODERM) 5 % patch Apply 1 (one) patch to skin once daily 05/09/2021 Active Active Problems Problem Noted Date Diagnosed Date Trauma 05/06/2021 Fall 05/06/2021 Multiple closed fractures of ribs of left side 0 05/06/2021 Closed fracture of third lumbar vertebra 022 Family History Medical History Relation Name Comments COPD - Chronic Obstructive Pulmonary Disease Father Alzheimer's Disease Mother Relation Name Status Comments Father Mother Social History Tobacco Use Types Packs/Day Years Used Date Smoking Tobacco: Never Assessed Sex and Gender Information Value Date Recorded Sex Assigned at Not on file Gender Identity Not on file Sexual Orientation Not on file Last Filed Vital Signs Vital Sign Reading Time Taken Comments Blood Pressure 157/88 05/08/2021 10:42 AM [employer]RAFTER [employer] Pulse 75 05/08/2021 10:42 AM [employer] Temperature 36.7 C (98 F) 05/08/2021 10:42 AM [employer] Respiratory Rate 19 05/08/2021 10:42 AM [employer] Oxygen Saturation 100% 05/08/2021 10:42 AM [employer] Inhaled Oxygen Concentration - - Weight 90.7 kg (200 lb) 05/05/2021 8:18 PM [employer] Height 185.4 cm (6' 1 ) 05/05/2021 8:18 PM [employer] Body Mass Index 26.39 05/05/2021 8:18 PM [employer] Plan of Treatment Health Maintenance Due Date Last Done Comments COLOGUARD (AGES 45-75) - COL ON CA SCREENING 1950 COLON MONITORING 1950 COLONOSCOPY - COLON CA SCREENING 1951 CT COLONOGRAPHY - COLON CA SCREENING 1950 Colorectal Cancer Screening 1950 FIT - COLON CA SCREENING 1950 FLEX SIG - COLON CA SCREENING 1950 MEDICARE AWV 12 MONTHS 1950 HEPATITIS C SCREENING 12/12/1969 DTAP/TDAP/TD VACCINES (1 - Tdap) 12/16/1970 PNEUMOCOCCAL VACCINE 50+ (1 of 1 - PCV) 12/16/2001 ZOSTER VACCINE (1 of 2) 12/16/2001 Respiratory Syncytial Virus (RSV) Vaccine Pt: or over 60 yrs (1 - Risk 60-74 years 1-dose series) 2011 COVID-19 VACCINE (2023-2 5 season) 2023 INFLUENZA VACCINE (#1) 2023 DEPRESSION SCREENING 03/21/2024 HEPATITIS B VACCINE Aged Out No longe r eligible based on patient's age to complete this topic HIB VACCINE Aged Out No longer eligi ble based on patient's age to complete this topic HPV VACCINE Aged Out No longer eligi ble based on patient's age to complete this topic MENINGOCOCCAL (Group B) VACC INE SHARED DECISION-MAKING Aged Out No longer eligibl e based on patient's age to complete this topic MENINGOCOCCAL GROUPS A/C/Y/W VACCINE Aged Out No longer eligible b ased on patient's age to complete this topic BECK SIEGEL Personal/Famil y Self 1950 [address] [id number] BECK MOSER Personal/Famil y 1950 [address] [place] [address]
== END 2024-06-05 15:39 | disposition home or self-care (01) ==
PROVIDERS: PCP Internal Medicine; Visit Provider Orthopaedic Surgery
DX: M75.101 Unspecified rotator cuff tear or rupture of right shoulder, not specified as traumatic (principal); M19.011 Primary osteoarthritis, right shoulder
CPT/HCPCS: 73221

== ENCOUNTER 2024-07-13 15:02 | Outpatient (CLI) | payer MEDICARE, OTHER, SELFPAY ==
--- NOTE | ~2024-07-13 | CT_ITS ---
Procedure: CT shoulder RT wo con Ordering provider: Elliot Armstrong MD History: . Preoperative Planning . Comparison: None. Technique: Thin slice axial CT of the No IV contrast was given. Sagittal and coronal reformatted imag es were also obtained and reviewed. Radiation reduction technique utilized.The dose-length product wa s 404.03 mGy-cm. Findings: BONES: Elevation of the neck of the humerus narrowing of the distance between the acromion process an d the humeral head. Impingement of the supraspinatus tendon highly suggestive. 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 Pseudoarthrosis seen be tween the coronoid process and the clavicle. Osteoarthritic changes of the glenohumeral joint. SOFT TISSUES: Slightly atrophic subscapularis muscle. 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 Highly suggestive for tendon injury in the supraspinatus tendon. Reviewed, dictated and finalized at location A. 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 Highly suggestive for tendon injury in the supraspinatus tendon.
--- OUTSIDE RECORDS SUMMARY | 2024-07-13 15:00 | XMS_ITS | Clinical Summary ---
Author Organization [facility] Address [address] [place] [address] Care Team Providers Care Venetian Blind Machine Operator Name Role Phone Unavailable Primary Care Provider Unavailabl e Source Comments [facility],non-owned Affiliates and Associated Physician Practices is amultiple site organization consisting of ambulatory clinics and hospital sitesin [place], [place], [place] and [place]. This disclosure is being madepursuant to the Care Everywhere program and may not contain all information available regarding this patient. Last updated 17.[facility] Allergies No known active allergies Medications * Be aware that medications may not be up to date on this document. Alwaysverify current medications with the patient. metFORMIN (GLUCOPHAGE) 1000 MG tablet Take 1,000 [...] 32 mg by mouth once daily Active empagliflozin- linaGLIPtin (GLYXAMBI) 10-5 MG tablet Take 1 tablet by mouth every morning Active Venlafaxine HCl (VENLAFAXINE ER 24HR) 150 MG tablet Take 150 mg by mouth daily with breakfast Active oxyCODONE, immediate release, (ROXICODONE) 5 MG tablet Take 1 (one) tablet by mouth every 6 hours as needed for Pain 28 tablet 2 Active acetaminophen (TYLENOL) 325 MG tablet Take 2 (two) tablets by mouth every 6 hours as needed for Fever or Pain Maximum allowable Acetaminophen amount = 4 Grams (4000 mg) / 24 hours. 2 Active ibuprofen (MOTRIN) 600 MG tablet Take 1 (one) tablet by mouth every 6 hours as needed for Pain 2 Active lidocaine (LIDODERM) 5 % patch Apply 1 (one) patch to skin once daily 2 Active Active Problems Problem Noted Date Diagnosed [...] Recorded Sex Assigned at Not on file Legal Sex Male 8:15 PM REGIONAL CRA Gender Identity Not on file Sexual Orientation Not on file Last Filed Vital Signs Vital Sign Reading Time Taken Comments Blood Pressure 157/88 05/08/2021 10:42 AM REGIONAL CRA Pulse 75 05/08/2021 10:42 AM REGIONAL CRA Temperature 36.7 C (98 F) 05/08/2021 10:42 AM REGIONAL CRA Respiratory Rate 19 05/08/2021 10:42 AM REGIONAL CRA Oxygen Saturation 100% 05/08/2021 10:42 AM REGIONAL CRA Inhaled Oxygen Concentration - - Weight 90.7 kg (200 lb) 05/05/2021 8:18 PM REGIONAL CRA Height 185.4 cm (6' 1 ) 05/05/2021 8:18 PM REGIONAL CRA Body Mass Index 26.39 05/05/2021 8:18 PM REGIONAL CRA Plan of Treatment Health Maintenance Due Date Last Done Comments COLOGUARD (AGES 45-75) - COL ON CA SCREENING 1950 COLON MONITORING 1950 COLONOSCOPY - COLON CA SCREENING 1951 CT COLONOGRAPHY - COLON CA SCREENING 1950 Colorectal Cancer Screening 1950 FIT - COLON CA SCREENING 1951 FLEX SIG - COLON CA SCREENING 1950 HEPATITIS C SCREENING 12/12/1969 DTAP/TDAP/TD VACCINES (1 - Tdap) 12/16/1970 PNEUMOCOCCAL VACCINE 50+ (1 of 1 - PCV) 12/16/2001 ZOSTER VACCINE (1 of 2) 12/16/2001 COVID-19 VACCINE (2023-2 5 season) 2023 DEPRESSION SCREENING 03/21/2024 INFLUENZA VACCINE (Season Ended) 2024 Respiratory Syncytial Virus (RSV) Vaccine Pt: or over 60 yrs (1 - 1-dose 75+ series) 12/16/2026 HEPATITIS B VACCINE Aged Out No longe [...] on patient's age to complete this topic Insurance MEDICARE [employer] [place] MED[place]ARE
--- NOTE | 2024-07-13 15:26 | ECG_ITS ---
Test Date: 2024-07-13 15:34:49 Measurements Intervals [place] Rate: 86 P: 58 [place]: 143 QRS: 49 QRSD: 104 T: 52 QT: 370 QTc: 444 Interpretive Statements SINUS RHYTHM BASELINE ARTIFACT- I, II, III, AVR, AVL, AVF, V1-V6 NORMAL ECG No previous ECG available for comparison Electronically Signed On 07-13-2024 15:41:00 CDT by Charles Camaar D.O.
== END 2024-07-13 15:03 | disposition home or self-care (01) ==
PROVIDERS: PCP Internal Medicine; Visit Provider Orthopaedic Surgery
DX: I10 Essential (primary) hypertension (principal); M75.101 Unspecified rotator cuff tear or rupture of right shoulder, not specified as traumatic; M19.011 Primary osteoarthritis, right shoulder
CPT/HCPCS: 73200; 93005

== ENCOUNTER 2024-07-19 15:00 | Outpatient (RCR) | payer MEDICARE, OTHER, SELFPAY ==
--- NOTE | 2024-06-28 14:31 | OPREHPOC ---
Outpatient Therapy Plan of Care This is a Multidisciplinary Plan of Care that may contain components documented by all disciplines (PT, OT, and ST.) PT Problem 1 PT Problem #1 Knowledge Deficit PT Goal 1 Goal / Goal Update [place] with HEP Target Visit 2 PT Goal 2 Goal / Goal Update Report no pain greater than 4/10 consistently Target Visit 4 PT Problem 2 PT Problem #2 Impaired Range of Motion PT Goal 1 Goal / Goal Update 1. Achieve 170 degrees of shoulder flexion ROM 2. Achieve 80 degrees of right shoulder external rotation ROM Target Visit 4 PT Problem 3 PT Problem #3 Impaired Strength PT Goal 1 Goal / Goal Update Improve R shoulder gross strength to 4/5 to improve stabilization and functional use Target Visit 4
--- NOTE | 2024-06-28 14:31 | PTOPEVAL1 ---
Assessment and note entered by Jimenez Brito, PT Evaluation Information Assessment Status Evaluation Diagnosis M75.101 RItator cuff tear right shoulder ICD-10 Condition Codes (PT) Pain in right shoulder M25.511 Onset 3 years ago Subjective Information Reports that he has had issues for about 3 years after a fall. He had an MRI and noted a rupture of rotator cuff. At this point he is awaiting an orthopedic consultation for potential reverse total shoulder replacement. He is unable to do anything overhead. Cannot sleep on his right side. Patient is right handed. Reported Pain Level Pain Score 5: Self Report Assessment PT Clinical Summary Patient presented with very low tolerance for shoulder mobility and ROM this date. Multidirectional pain and weakness was noted. At this time prognosis for therapy is poor given his significant deficits, weakness, pain, and anatomical findings. We will assess progress moving forward in hope of providing as much conservative rehabilitation as possible to either prepare for possible surgery or allow for compensated function. Plan of Care Interventions Electrical Stimulation,Manual Therapy,Neuro Re- education,Therapeutic Activities,Therapeutic Exercise PT Services Indicated Yes Treatment Frequency and 1x/week for 4 visits Duration These treatments will address the objective and functional deficits as defined above. The patient will be advanced safely and appropriately in order for the patient to progress towards his/her prior level of function. Additional exercises will be introduced and as well as a comprehensive home exercise program upon discharge, if needed, ?to ensure carryover of functional gains achieved in the clinic. This treatment plan has been reviewed and agreement upon by the patient.
--- NOTE | 2024-07-19 15:49 | PTOPDC ---
Assessment and note entered by Jimenez Brito, PT Evaluation Information Assessment Status Discharge Diagnosis M75.101 RItator cuff tear right shoulder ICD-10 Condition Codes (PT) Pain in right shoulder M25.511 Onset 3 years ago Subjective Information Patient reports that overall he feels his motion is improved. He is not scheduled for surgery until October of 2024 for rTSA. Reports that he is comfortable with HEP and will continue. Reported Pain Level Pain Score 3: Self Report Assessment PT Clinical Summary Patient has seen improved shoulder mobility. Still significantly weak. Demonstrates compliance and understanding with HEP. Suitable for discharge at this time. Plan of Care PT Services Indicated Yes
--- NOTE | 2024-09-20 08:35 | PTOPDC ---
Assessment and note entered by Jimenez Brito, PT Evaluation Information Assessment Status Discharge - Pt Not Present Diagnosis M75.101 Rotator cuff tear right shoulder ICD-10 Condition Codes (PT) Pain in right shoulder M25.511 Onset 3 years ago Subjective Information Patient reports that overall he feels his motion is improved. He is not scheduled for surgery until October of 2024 for rTSA. Reports that he is comfortable with HEP and will continue. Assessment PT Clinical Summary Patient was present for 3 sessions of PT. Discontinued therapy due to lack of progress with function. Currently seeing surgical intervention. Plan of Care PT Services Indicated Yes
== END 2024-09-11 10:14 | disposition home or self-care (01) ==
LOC: ANHPT 15:00
PROVIDERS: PCP Internal Medicine; Visit Provider Orthopaedic Surgery
DX: M75.101 Unspecified rotator cuff tear or rupture of right shoulder, not specified as traumatic (principal)
CPT/HCPCS: 97014; 97110; 97140; 97161; G0283

== ENCOUNTER 2024-08-16 10:52 | Outpatient (CLI) | payer MEDICARE, OTHER, SELFPAY ==
--- OUTSIDE RECORDS SUMMARY | 2024-08-16 10:55 | XMS_ITS | Clinical Summary ---
Author Organization [facility] [employer] Address [address] [place] [address] Care Team Providers Care Multiple Knife Edge Trimmer Operator Name Role Phone Unavailable Primary Care Provider Unavailabl e Source Comments [facility] [employer] [facility],non-owned Affiliates and Associated Physician Practices is amultiple site organization consisting of ambulatory clinics and hospital sitesin [place], [place], [place] and [place]. This disclosure is being madepursuant to the Care Everywhere program and may not contain all information available regarding this patient. Last updated 17.[facility] Allergies No known active allergies Medications * [...] on file Legal Sex Male 8:15 PM CHUCK BONER Gender Identity Not on file Sexual Orientation Not on file Last Filed Vital Signs Vital Sign Reading Time Taken Comments Blood Pressure 157/88 05/08/2021 10:42 AM CHUCK BONER Pulse 75 05/08/2021 10:42 AM CHUCK BONER Temperature 36.7 C (98 F) 05/08/2021 10:42 AM CHUCK BONER Respiratory Rate 19 05/08/2021 10:42 AM CHUCK BONER Oxygen Saturation 100% 05/08/2021 10:42 AM CHUCK BONER Inhaled Oxygen Concentration - - Weight 90.7 kg (200 lb) 05/05/2021 8:18 PM CHUCK BONER Height 185.4 cm (6' 1) 05/05/2021 8:18 PM CHUCK BONER Body Mass Index 26.39 05/05/2021 8:18 PM CHUCK BONER Plan of Treatment Health Maintenance Due Date [...] age to complete this topic Insurance MEDICARE [email or web address] [place]
[2024-08-16 12:04] LABS: Free T4 Free Thyroxine 1.03 ng/dL (0.78-2.19)
[2024-08-16 12:07] LABS: Thyroid Stimulating Hormone 0.687 uIU/mL (0.465-4.680)
== END 2024-08-16 10:53 | disposition home or self-care (01) ==
PROVIDERS: PCP Internal Medicine; Visit Provider Nurse Practitioner
DX: E03.9 Hypothyroidism, unspecified (principal)
CPT/HCPCS: 36415; 84439; 84443

== ENCOUNTER 2024-10-10 13:27 | Outpatient (CLI) | payer MEDICARE, OTHER, SELFPAY ==
--- OUTSIDE RECORDS SUMMARY | 2024-10-10 13:38 | XMS_ITS | Clinical Summary ---
Author Organization [facility] [employer] Address [address] [place] [address] Care Team Providers Care Playground Monitor Name Role Phone Unavailable Primary Care Provider Unavailabl e Source Comments [facility] [employer],non-owned Affiliates and Associated Physician Practices is amultiple site organization consisting of ambulatory clinics and hospital sitesin [place], [place], [place] and [place]. This disclosure is being madepursuant to the Care Everywhere program and may not contain all information available regarding this patient. Last updated 17.[facility] Allergies No known active allergies Medications * [...] on file Legal Sex Male 8:15 PM CONSTRUCTION PRODUCER Gender Identity Not on file Sexual Orientation Not on file Last Filed Vital Signs Vital Sign Reading Time Taken Comments Blood Pressure 157/88 05/08/2021 10:42 AM CONSTRUCTION PRODUCER Pulse 75 05/08/2021 10:42 AM CONSTRUCTION PRODUCER Temperature 36.7 C (98 F) 05/08/2021 10:42 AM CONSTRUCTION PRODUCER Respiratory Rate 19 05/08/2021 10:42 AM CONSTRUCTION PRODUCER Oxygen Saturation 100% 05/08/2021 10:42 AM CONSTRUCTION PRODUCER Inhaled Oxygen Concentration - - Weight 90.7 kg (200 lb) 05/05/2021 8:18 PM CONSTRUCTION PRODUCER Height 185.4 cm (6' 1) 05/05/2021 8:18 PM CONSTRUCTION PRODUCER Body Mass Index 26.39 05/05/2021 8:18 PM CONSTRUCTION PRODUCER Plan of Treatment Health Maintenance Due Date [...] season) 2023 DEPRESSION SCREENING 03/21/2024 INFLUENZA VACCINE (#1) 2024 Respiratory Syncytial Virus (RSV) Vaccine Pt: [...] age to complete this topic Insurance MEDICARE [employer] [place] MEDICARE
[2024-10-10 14:47] LABS: Hematocrit 41.3 % (42.0-52.0); Hemoglobin 14.1 g/dL (14.0-18.0); Immature Granulocyte Percent A 1.5 % (0-0.5); Lymphocytes Absolute Auto 1.77 K/mm3 (0.9-3.2); Mean Corpuscular HGB Conc 34.1 g/dl (32-36); Mean Corpuscular Hemoglobin 34.1 pg (26-34); Mean Corpuscular Volume 99.8 fl (80-100); Nucleated Red Blood Cells Absolute Auto 0.000 K/mm3 (0.0-0.012); Nucleated Red Blood Cells Perc 0.0 % (0.0-0.2); Platelet Count Result 135 k/mm3 (150-375); Red Blood Count 4.14 M/mm3 (4.6-6.20); White Blood Count 6.7 K/mm3 (4.5-10.0)
[2024-10-10 15:14] LABS: Anion Gap 7 mmol/L (4-12); Blood Urea Nitrogen 12 mg/dL (9-20); Calcium 9.2 mg/dL (8.4-10.2); Carbon Dioxide 24 mmol/L (22-30); Chloride 99 mmol/L (98-107); Estimated Glomerular Filt Rate > 60; Glucose 95 mg/dL (65-110); Potassium 5.0 mmol/L (3.4-5.0); Sodium 130 mmol/L (137-145)
[2024-10-10 15:58] LABS: MRSA (PCR) NOT DETECTED (NOT DETECTE)
== END 2024-10-10 13:28 | disposition home or self-care (01) ==
LOC: ANHSURGERY 13:34
PROVIDERS: Anesthesiology; PCP Nurse Practitioner; Visit Provider Orthopaedic Surgery
DX: M75.101 Unspecified rotator cuff tear or rupture of right shoulder, not specified as traumatic (principal); E11.9 Type 2 diabetes mellitus without complications
CPT/HCPCS: 36415; 80048; 85025; 87641

== ENCOUNTER 2024-11-01 02:07 | Day surgery (SDC) | payer MEDICARE, OTHER, SELFPAY ==
[2024-10-10 13:42] VITALS: BMI 29.0
--- NOTE | 2024-10-10 13:43 | PC.NURSE ---
Report to the Outpatient Waiting Room, entrance under the green pavilion located off [facility], at time _6AM on date __11/01/24 . Planned Procedure Time:7:30 AM .? Time changes happen often and if your time is changed the preop area will call you the afternoon before. - You and your visitor will be asked to self-screen and do not enter if you have any COVID symptoms. Please call surgeon if you need to reschedule. - A mask is optional within the hospital at this time. Patients may have clear liquids (water, carbonated beverages, clear teas, apple juice) until 3 hours prior to surgery ( 4:30 AM)with a maximum of 20 ounces. - No food from midnight until time of surgery and no smoking, or chewing tobacco (or any form of nicotine). No chewing gum, candy or mints. - Take only the following medications with a SIP of water on the morning of surgery: __VENLAFAXINE,SYNTHROID DO NOT STOP ANY OF YOUR OTHER PRESCRIPTION MEDICATIONS PRIOR TO SURGERY EXCEPT THE FOLLOWING Hold all vitamins and supplements for 3 days per anesthesiologist. Medications to discontinue per physician NONE Please no make-up, nail jordanian, hairspray, perfume, deodorant, or body powder the day of surgery.? No jewelry (including any body piercings) or valuables the day of surgery, leave them at home.? Please take a shower or bath the night before, or the morning of, surgery with an antibacterial soap.? Wear comfortable, loose fitting clothing.? Children are encouraged to wear pajamas. - Jewelry must be removed prior to entering the operating room.? Rings and piercings that are not removed may be cut off. - The hospital will not accept responsibility for valuables.? - Please leave all valuables, including medications, at home the day of surgery. If you are going home after surgery, a licensed transport driver must drive you home.? - NO public transportation without another adult if you receive anesthesia. - We recommend that an adult stay with you for 24 hours following discharge. - We also recommend that you do not drive, make important decision, drink alcoholic beverages, or take any drugs that were not prescribed by your health care provider for at least 24 hours after your discharge time. For Pediatric surgeries, we recommend two adults accompany the child home. Follow any additional instructions given to you from your surgeon. VERBAL AND WRITTEN instructions given to __PATIENT and asked if any additional questions and then verbalized understanding. Patient advised to call surgeon office or pre surgery nurse liaison [phone] if any additional questions.
[2024-11-01] VITALS (15 sets, daily range): BP systolic 112–139; BP diastolic 54–78; PULSE 70–88; RESP 12–18; TEMP 36.1–36.8; O2SAT 94–100
--- NOTE | ~2024-11-01 | XR_ITS ---
EXAMINATION: XR shoulder RT min 2V DATE: 11/01/2024 10:03 INDICATION: Status post reverse right total shoulder arthroplasty TECHNIQUE: AP and transscapular Y views of the right shoulder were obtained. COMPARISON: None FINDINGS: Reverse right total shoulder arthroplasty which is in near-anatomic alignment. 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 Mild acromioclavicular osteoarthritis. Expec ellen postoperative gas in the soft tissues about the right shoulder. IMPRESSION: 1. Newly placed reverse total shoulder arthroplasty in near-anatomic alignment, negative for postoper ative purposes. 2. 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 Reviewed, dictated and finalized at location A. IMPRESSION: 1. Newly placed reverse total shoulder arthroplasty in near-anatomic alignment, negative for postoperative purposes. 2. 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
--- OUTSIDE RECORDS SUMMARY | 2024-11-01 02:10 | XMS_ITS | Clinical Summary ---
Author Organization [facility] Address [address] [place] [address] Care Team Providers Care Incinerator Plant General Supervisor Name Role Phone Unavailable Primary Care Provider Unavailabl e Source Comments [facility] [employer],non-owned Affiliates and Associated Physician Practices is amultiple site organization consisting of ambulatory clinics and hospital sitesin [place], [place], [place]. This disclosure is being madepursuant to the Care Everywhere program and may not contain all information available regarding this patient. Last updated 17.[facility] Allergies No known active allergies Medications * [...] on file Legal Sex Male 8:15 PM ARMHOLE PRESSER Gender Identity Not on file Sexual Orientation Not on file Last Filed Vital Signs Vital Sign Reading Time Taken Comments Blood Pressure 157/88 05/08/2021 10:42 AM ARMHOLE PRESSER Pulse 75 05/08/2021 10:42 AM ARMHOLE PRESSER Temperature 36.7 C (98 F) 05/08/2021 10:42 AM ARMHOLE PRESSER Respiratory Rate 19 05/08/2021 10:42 AM ARMHOLE PRESSER Oxygen Saturation 100% 05/08/2021 10:42 AM ARMHOLE PRESSER Inhaled Oxygen Concentration - - Weight 90.7 kg (200 lb) 05/05/2021 8:18 PM ARMHOLE PRESSER Height 185.4 cm (6' 1) 05/05/2021 8:18 PM ARMHOLE PRESSER Body Mass Index 26.39 05/05/2021 8:18 PM ARMHOLE PRESSER Plan of Treatment Health Maintenance Due Date [...] age to complete this topic Insurance MEDICARE [employer] [place]
[2024-11-01] MEDS: LACTATED RINGERS 1,000 ML 30 ML IV CONT ×2 (07:03→09:42)
[2024-11-01] MEDS: ACETAMINOPHEN 500 MG TABLET 1000 MG PO (07:04)
[2024-11-01] MEDS: TRANEXAMIC ACID 1,000MG/ISO100 1,000 MG/100 ML BAG 200 MG IVPB (07:05)
--- NOTE | 2024-11-01 07:12 | WPDHPUPDATE1 ---
History and Physical Update Update Date/Time: 11/01/24 07:12 History and Physical has been reviewed, including an updated exam of the patient. There are NO changes in the patient's condition. Risks, benefits, and alternatives have been discussed and questions answered. Patient agrees to proceed with procedure.
--- NOTE | 2024-11-01 07:15 | P.PNAN_ITS ---
Anes - Initial Pre Proc Eval Procedure: Operation Date: 11/01/24 07:30 Proposed Procedures p Right Reverse Total Shoulder Arthroplasty - Elliot Armstrong MD Date/Time: 11/01/24 07:15 Surgeon: Elliot Armstrong MD Pre Op Diagnosis: right rotator cuff arthropathy Patient Data Age: 73 Gender: M Height: 1.78 m Weight: 88.7 kg Allergies Allergy/AdvReac Type Severity Reaction Status Date / Time morphine AdvReac Unknown Nausea Verified 11/01/24 06:46 Home Medications ?Medication ?Instructions ?Recorded ?Confirmed ?Type empagliflozin 10 mg-linagliptin 5 1 tablet PO DAILY #90 tabs 05/15/24 11/01/24 Rx mg tablet (Glyxambi) metformin 500 mg tablet See Rx Instructions .Route 08/06/24 11/01/24 Rx .COMPLEX #360 tabs atorvastatin 40 mg tablet 40 mg PO DAILY #90 tabs 08/21/24 11/01/24 Rx candesartan 32 mg tablet See Rx Instructions .Route 08/21/24 11/01/24 Rx .COMPLEX #90 tabs icosapent ethyl 1 gram capsule See Rx Instructions .Route 08/21/24 11/01/24 Rx (Vascepa) .COMPLEX #360 caps levothyroxine 150 mcg tablet 150 mcg PO DAILY #90 tabs 08/21/24 11/01/24 Rx (Synthroid) venlafaxine 150 mg See Rx Instructions .Route 08/21/24 11/01/24 Rx capsule,extended release 24 hr .COMPLEX #90 caps Laboratory Tests 11/01/24 07:01 Sodium Pending Blood Type Pending Antibody Screen Pending Patient hx anesthesia problems: none Family hx anesthesia problems: none Results Review: All pre-operative results and documents have been reviewed as part of the pre- operative evaluation. [facility], [facility] Past Medical History Medical History Diabetes Hyperlipidemia Hypertension Broken ribs Surgical History Surgical History No pertinent past surgical history Family History Family History Mother Family history of Alzheimer's disease Diabetes mellitus Father Diabetes mellitus Emphysema of lung Pneumonia Sibling Pneumonia Carcinoma of colon Other Hypertension Social History Social History Smoking packs per day: 2 Smoking cigarettes per day: 40.0 Years smoked: 8 Smoking pack-years: 16.00 Smoking status: Former smoker Tobacco type: cigarettes Second hand tobacco smoke exposure: No Smoking end date: 03/21/77 Alcohol intake: current Drinks per week: 30 Alcohol use details: BEER Substance use: never Substance use type: does not use Do You Feel Safe in your Home?: Yes Lack of Transportation: No Lack of Food: Never True Current Housing: I Have Housing Concerned About Future Housing: No Difficulty Paying Gas/Electric Bills: No Difficulty Paying for Meds: No Currently Unemployed: No Education: Associate Degree Difficulty w/ Childcare or Family Care: No Living arrangements: with family Occupation/Education: retired Additional occupation/education comments: [employer] Gender identity (if verbalized by the patient): Male Spiritual care concerns: No Anes - Eval Final PreProcedure Day of Procedure 11/01/24 07:15 Patient weight: normal Lungs: normal air movement Airway: Mallampati scale class II and special considerations (Edentulous. ) Neurological: alert and oriented Last oral intake: >/= 8 hours ASA classification: III Emergent: no Anesthetic plan: proceed Anesthesia type and monitoring: general ETT and standard monitoring Results Review: All pre-operative results and documents have been reviewed as part of the pre- operative evaluation. HTN, hyperlipidemia, hypothyroidism, DM fsbs 83, ex smoker quit 1977. ETOH use admitted at 30 beers/week. EKG reviewed. Informed Consent: The patient's anesthetic plan and its attendant risks and benefits were discussed with the patient/family/POA. Questions were solicited and answers provided to the satisfaction of the patient/family/POA.
[2024-11-01 07:21] LABS: Sodium 133 mmol/L (137-145)
[2024-11-01] MEDS: ceFAZolin 2 GM in SODIUM CHLORIDE 0.9% IV 50 ML 100 ML IVPB (07:50)
[2024-11-01] MEDS: SODIUM CHLORIDE 0.9% IV 38.7 ML, ROPivacaine HCL 1% 200 MG, KETOROLAC INJ (*BKC) 15 MG,... INFILTRATE (08:31)
[2024-11-01] MEDS: VANCOMYCIN HCL 1,000 MG VIAL 1000 MG TOPICAL (08:59)
[2024-11-01] MEDS: TRANEXAMIC ACID 1,000 MG/10 ML AMPUL 1000 MG IV PUSH (09:03)
--- NOTE | 2024-11-01 10:20 | P.OP_ITS ---
Procedure Note - Detailed Date of Procedure 11/01/24 Pre-op Diagnosis Right rotator cuff arthropathy Post-op Diagnosis Same Procedure Performed Reverse total shoulder arthroplasty, right Surgeon Elliot Armstrong MD Anesthesia General Findings Massive cuff tear. No glenoid erosion. Description of Procedure Preoperative antibiotics were given. The patient was transferred to the operating room and a general anesthetic was administered. The beach chair position was used at 45 degrees. All bony prominences were padded. The head was carefully stabilized on the [facility] head of sales and marketing. A sterile prep and drape was performed in the usual manner with ChloraPrep. A longitudinal incision was created at the anterior shoulder just lateral to the deltopectoral interval. Careful dissection was performed to expose the interval and protect the cephalic vein. The vein was retracted medially. Anterior circumflex vessel branches were suture ligated. The biceps was tenodesed. The subscapularis was severely attenuated. There was enough tissue for a tenotomy. The inferior capsule was released, exposing the humeral head. Osteophytes were removed. Care was taken to stay on bone to protect the axillary nerve. The neck anteversion and inclination were carefully assessed. Version was between 20? and 30?. The anatomic head cut was taken with the oscillating saw. The cut protector was placed, and attention was turned to the glenoid. Retractors were placed. Releas es were carried out for exposure. The subscapularis was mobilized, the inferior capsule and long head of triceps released, and the superior and middle glenohumeral ligaments released as well. Labral tissue was resected as needed. Version and inclination were corrected according to preoperative templating. The sizing template was used to assess the baseplate position low on the glenoid, with an approximate 5 degrees corrections of retroversion and 5 degrees of inclination. A guide pin was placed. Minimal reaming was used to accomplish a flat surface without violating the subchondral bone. The boss was drilled, and the real component was impacted into position. The central compression screw was placed. Supplemental locking screws were placed superiorly, and inferiorly. The glenosphere was impacted into the taper. Attention was turned to the humerus. The guide pin was placed, central drilling performed, and the broach trial inserted. The proximal humerus was reamed for the inset component. The humeral components were trialed. The real humeral stem, tray, and insert were impacted into position. The shoulder was copiously irrigated periodically with pulsatile lavage. The shoulder was reduced and stability confirmed. 1 gram of Vancomycin powder was placed in the joint. The remaining tissue was closed with 2-0 Vicryl, 3-0 Stratafix and 4-0 Stratafix, and steri-strips. A sterile silver occlusive dressing and shoulder immobilizer were placed. The patient was transferred to the recovery room. [employer] Should[employer] reverse TSA size 1 stem. +0 polyethylene insert. 5 augmented baseplate. 36 + 6 mm glenosphere. Estimated Blood Loss 200 Drains No Pathology None sent Complications No immediate complications Condition Stable Disposition PACU [facility] Billing Surgery - Charge Forward: Surgery Billing
[2024-11-01] MEDS: fentaNYL CITRATE INJ (*CRX) 100 MCG/2 ML VIAL 25 MCG IV PUSH ×4 (10:32→10:55)
[2024-11-01] MEDS: oxyCODONE/ACETAMINOPHEN (*CRX) 5-325 MG TABLET 1 TABLET PO (11:50)
[2024-11-01] MEDS: SODIUM CHLORIDE 0.9% IV 1,000 ML 125 ML IV CONT (11:50)
--- NOTE | 2024-11-01 12:00 | ADMGEN ---
This patient, Beck Collier, was admitted to [facility] Surg Room 319-01. Patient/family oriented to hospital policies and general routines including ID bracelet, bed and alarms, visiting hours, pain management, procedures, bathroom and other care routines, personal items, smoking policy, room service/diet, and visiting hours. Information on how to activate the Rapid Response Team has been discussed. Patient/Family are encouraged to report perceived risks to care and to ask questions if they do not understand what they are told or what they should do.
--- NOTE | 2024-11-01 12:03 | PC.NURSE ---
pt to 3M/S Rm. 319 @ .3145
[2024-11-01] MEDS: HYDROmorphone HCL INJ (*CRX) 1 MG/ML SYR 0.5 MG IV PUSH (13:33)
[2024-11-01] MEDS: ceFAZolin 2 GM/D5W 50 ML 2 GM/50 ML BAG IVPB ×2 (15:21→22:27)
[2024-11-01] MEDS: ACETAMINOPHEN 325 MG TABLET 650 MG PO ×2 (18:16→23:11)
[2024-11-01] MEDS: ASPIRIN 81 MG ENTERIC TABLET PO (18:16)
[2024-11-01] MEDS: SENNA/DOCUSATE SODIUM TABLET 2 TAB PO (18:16)
[2024-11-01] MEDS: OMEGA 3 POLYUNSAT FATTY ACIDS 1 GM CAP 2 GM BY MOUTH (20:51)
[2024-11-02 05:03] VITALS: BP 125/76; PULSE 78; RESP 20; TEMP 35.9; O2SAT 100
--- NOTE | 2024-11-02 05:13 | PC.NURSE ---
On 11/01/24-11/02/24, GEORGE Navarrete, provided care and completed [facility] documentation on this patient. I have reviewed her documentation and agree with the findings.
[2024-11-02] MEDS: ACETAMINOPHEN 325 MG TABLET 650 MG PO ×2 (06:37→12:29)
[2024-11-02] MEDS: ceFAZolin 2 GM/D5W 50 ML 2 GM/50 ML BAG IVPB (06:38)
[2024-11-02 06:57] LABS: Hematocrit 39.4 % (42.0-52.0); Hemoglobin 12.9 g/dL (14.0-18.0); Immature Granulocyte Percent A 0.7 % (0-0.5); Lymphocytes Absolute Auto 1.53 K/mm3 (0.9-3.2); Mean Corpuscular HGB Conc 32.7 g/dl (32-36); Mean Corpuscular Hemoglobin 34.0 pg (26-34); Mean Corpuscular Volume 104.0 fl (80-100); Nucleated Red Blood Cells Absolute Auto 0.000 K/mm3 (0.0-0.012); Nucleated Red Blood Cells Perc 0.0 % (0.0-0.2); Platelet Count Result 133 k/mm3 (150-375); Red Blood Count 3.79 M/mm3 (4.6-6.20); White Blood Count 8.7 K/mm3 (4.5-10.0)
[2024-11-02 07:22] LABS: Anion Gap 5 mmol/L (4-12); Blood Urea Nitrogen 13 mg/dL (9-20); Calcium 8.9 mg/dL (8.4-10.2); Carbon Dioxide 27 mmol/L (22-30); Chloride 102 mmol/L (98-107); Estimated CRCL calculation 62 ml/min; Estimated Glomerular Filt Rate > 60; Glucose 110 mg/dL (65-110); Potassium 4.8 mmol/L (3.4-5.0); Sodium 134 mmol/L (137-145)
[2024-11-02 09:03] VITALS: BP 123/72; PULSE 80; RESP 18; TEMP 36.4; O2SAT 100
[2024-11-02 09:55] VITALS: O2SAT 98
[2024-11-02] MEDS: VENLAFAXINE HCL XR 75 MG CAP.ER.24H 150 MG BY MOUTH (10:14)
[2024-11-02] MEDS: ASPIRIN 81 MG ENTERIC TABLET PO (10:14)
[2024-11-02] MEDS: OMEGA 3 POLYUNSAT FATTY ACIDS 1 GM CAP 2 GM BY MOUTH (10:14)
[2024-11-02] MEDS: SENNA/DOCUSATE SODIUM TABLET 2 TAB PO (10:14)
[2024-11-02] MEDS: EMPAGLIFLOZIN 10 MG TABLET BY MOUTH (10:15)
[2024-11-02] MEDS: CANDESARTAN CILEXETIL 16 MG TABLET 32 MG PO (10:15)
[2024-11-02] MEDS: ATORVASTATIN 40 MG TABLET PO (10:15)
== END 2024-11-02 13:00 | disposition home or self-care (01) ==
LOC: ANHSURGERY 05:46 → ANH3MEDSUR 11:25
PROVIDERS: Anesthesiology; PCP Nurse Practitioner; Visit Provider Orthopaedic Surgery
PROC: (CPT 23472; principal; 2024-11-01 07:30)
DX: M75.101 Unspecified rotator cuff tear or rupture of right shoulder, not specified as traumatic (principal); M12.811 Other specific arthropathies, not elsewhere classified, right shoulder; M25.711 Osteophyte, right shoulder; E78.5 Hyperlipidemia, unspecified; I10 Essential (primary) hypertension; E11.9 Type 2 diabetes mellitus without complications; E03.9 Hypothyroidism, unspecified; Z87.891 Personal history of nicotine dependence; Z80.0 Family history of malignant neoplasm of digestive organs; Z79.84 Long term (current) use of oral hypoglycemic drugs
CPT/HCPCS: 23472; 36415; 73030; 80048; 82948; 84295; 85025; 86850; 86900; 86901; 97110; 97116; 97161; 97166; 97530; 97535; J0690; A9270; J0166; J1100; J1171; J1885; J2003; J2250; J2405; J2704; J2795; J3010; J3373; J7030; J7120

== ENCOUNTER 2025-02-15 13:45 | Outpatient (RCR) | payer MEDICARE, OTHER, SELFPAY ==
--- NOTE | 2024-12-17 09:47 | OPREHPOC ---
Outpatient Therapy Plan of Care This is a Multidisciplinary Plan of Care that may contain components documented by all disciplines (PT, OT, and ST.) PT Problem 1 PT Problem #1 Knowledge Deficit PT Goal 1 Goal / Goal Update Pt will demo good understanding of post-op phases of recovery and appropriate HEPs. Target Visit 8 PT Problem 2 PT Problem #2 Pain PT Goal 1 Goal / Goal Update Pt will report pain level of 0/10 with active mobility to WNL of ROM. Target Visit 12 PT Problem 3 PT Problem #3 Impaired Range of Motion PT Goal 1 Goal / Goal Update Pt will demo WNL of active R shoulder and cervical ROM to all planes in order to perform ADLs and IADLs safely. Target Visit 24 PT Problem 4 PT Problem #4 Impaired Strength PT Goal 1 Goal / Goal Update 1. Pt will demo 4/5 or higher on B shoulder strength to all tested planes. 2. Pt will be able to lift 3-5 lbs weight off the floor and raise it up to >90deg of shoulder forward flexion in order to perform ADLs at home safely and with proper body mechanics. Target Visit 24
--- NOTE | 2024-12-17 09:47 | PTOPEVAL1 ---
Assessment and note entered by Haylie Bolanos, PT Evaluation Information Assessment Status Evaluation Diagnosis z47.1, z96 ICD-10 Condition Codes (PT) Weakness R53.1 Onset 11/02/2023 Subjective Information Pt compliant with HEPs. He reports taking the sling off at 2nd week post-op. Yesterday, he states he might have overdone it, he lifted a grill up a step and felt sore after but went away did not feel any soreness today. Denies taking pain medication. Able to reach up and perform indep toileting with the R arm, reaching behind the back. Feels a pulling or sore type of pain when going further or suddenly moving the shoulder the wrong way. Assessment PT Clinical Summary Patient presents to therapy s/p R reverse total shoulder arthroplasty on 11/01/[address] Armstrong. At evaluation, incision wound is healing good, with noted small scabs, muscle guarding around the R shoulder and bilateral traps area, post-op ROM and strength deficits, decreased muscle endurance and postural instability. He will benefit from skilled PT for guided post-op rehabilitation course to achieve recovery and return to indep and painfree mobility . Plan of Care Interventions Electrical Stimulation,Gait Training,Hot Pack/Cold Pack,Manual Therapy,Neuro Re-education,Patient/ Caregiver Education,Therapeutic Activities, Therapeutic Exercise,Ultrasound PT Services Indicated Yes Treatment Frequency and 2x/wk x 12 visits Duration These treatments will address the objective and functional deficits as defined above. The patient will be advanced safely and appropriately in order for the patient to progress towards his/her prior level of function. Additional exercises will be introduced and as well as a comprehensive home exercise program upon discharge, if needed, ?to ensure carryover of functional gains achieved in the clinic. This treatment plan has been reviewed and agreement upon by the patient.
--- NOTE | 2025-01-17 15:57 | OPREHPOC ---
Outpatient Therapy Plan of Care This is a Multidisciplinary Plan of Care that may contain components documented by all disciplines (PT, OT, and ST.) PT Problem 1 PT Problem #1 Knowledge Deficit PT Goal 1 Goal / Goal Update Pt will demo good understanding of post-op phases of recovery and appropriate HEPs. update 01/17/2025: Patient will independently perform a progressive home strengthening program targeting deltoid, trapezius, rhomboids, and rotator cuff stabilizers with good form and control. Target Visit 8 Progress Partially Met PT Problem 2 PT Problem #2 Pain PT Goal 1 Goal / Goal Update Pt will report pain level of 0/10 with active mobility to WNL of ROM. Target Visit 12 Progress Met PT Problem 3 PT Problem #3 Impaired Range of Motion PT Goal 1 Goal / Goal Update Pt will demo WNL of active R shoulder and cervical ROM to all planes in order to perform ADLs and IADLs safely. -cont with this goal Target Visit 24 Progress Partially Met PT Problem 4 PT Problem #4 Impaired Strength PT Goal 1 Goal / Goal Update 1. Pt will demo 4/5 or higher on B shoulder strength to all tested planes. -cont with this goal 2. Pt will be able to lift 10 lbs weight off the floor and raise it up to >90deg of shoulder forward flexion in order to perform ADLs at home safely and with proper body mechanics. -cont with this goal Target Visit 24 Progress Partially Met
--- NOTE | 2025-01-17 15:57 | PTOPPROG ---
Assessment and note entered by Haylie Bolanos, PT Re-Evaluation Information Assessment Status Evaluation Diagnosis z47.1, z96 ICD-10 Condition Codes (PT) Weakness R53.1 Onset 11/02/2023 Subjective Information Pt. reports grabbing the bottom of approx 100# weighted flagstone and felt weird discomfort denies pain. Assessment PT Clinical Summary Patient demonstrates excellent progress consistent with post-operative timeline. Improved shoulder mobility and no pain noted. Continues to benefit from skilled PT to address residual stiffness, deltoid and periscapular strength deficits, and to emphasize postural control and scapular mechanics in progressing towards advance strengthening and shoulder stabilization, muscle endurance. No adverse responses to treatment. Plan of Care Interventions Electrical Stimulation,Gait Training,Hot Pack/Cold Pack,Manual Therapy,Neuro Re-education,Patient/ Caregiver Education,Therapeutic Activities, Therapeutic Exercise,Ultrasound PT Services Indicated Yes Treatment Frequency and 2x/wk x 8 visits Duration These treatments will address the objective and functional deficits as defined above. The patient will be advanced safely and appropriately in order for the patient to progress towards his/her prior level of function. Additional exercises will be introduced and as well as a comprehensive home exercise program upon discharge, if needed, ?to ensure carryover of functional gains achieved in the clinic. This treatment plan has been reviewed and agreement upon by the patient.
--- NOTE | 2025-02-15 17:00 | PTOPDC ---
Assessment and note entered by Haylie Bolanos, PT Discharge Information Assessment Status Discharge Diagnosis z47.1, z96 ICD-10 Condition Codes (PT) Weakness R53.1 Onset 11/02/2023 Subjective Information Pt reports he is feeling good and is moving his arm daily. States there was only one incident when he crossed his R arm to reach over to the L side that he felt a strange pull but it did not hurt and it did not persist. Reported Pain Level Pain Score 0: Self Report Assessment PT Clinical Summary Pt received a total of 19 treatment sessions and demo excellent progress with therapy. He showed gains in active ROM and strength, scapular stability and posture. Pt also reports he is compliant with HEPs and he has met established goals and is agreeable to DC today. Skilled PT discontinued. Plan of Care PT Services Indicated No
== END 2025-02-18 09:35 | disposition home or self-care (01) ==
LOC: ANHPT 13:45
PROVIDERS: PCP Nurse Practitioner; Visit Provider Orthopaedic Surgery
DX: Z48.89 Encounter for other specified surgical aftercare (principal); M75.101 Unspecified rotator cuff tear or rupture of right shoulder, not specified as traumatic; M25.511 Pain in right shoulder
CPT/HCPCS: 97035; 97110; 97112; 97140; 97161; 97530; 97750